=== PATIENT | female | born 1985 | race Caucasian/White ===

== ENCOUNTER 2018-08-30 08:50 | Emergency (ER) | payer MEDICAID ==
[2018-08-30 09:05] VITALS: BMI 27.3
[2018-08-30 09:13] VITALS: RESP 18
--- NOTE | 2018-08-30 09:27 | ED PDOC ---
Arrival/HPI - History of Present Illness Context: Other (gym) <Laureen Grimaldo - Last Filed: 08/30/18 10:39> - General Historian: Patient - History of Present Illness Narrative History of Present Illness (Text): 08/30/18 09:27 33 year old F with no significant PMH presents with right-sided upper back pain that started a few months ago when she injured herself at the gym. Per Patient, ever since this incident Patient reports she has been having intermittent burning and sharp pain in her left upper back/neck area. Patient says it flared up this morning after her unintentionally pulled her "hair bun back for a kiss." Patient quantifies her pain as 10/10 in severity. Patient otherwise denies headache, numbness/tingling, shortness of breath, chest pain, abdominal pain, fever, chills, nausea, vomiting, recent trauma, and/or injury. Time/Duration: 24 hours Symptom Course: Unchanged Severity Level: 10 <Paige Franklin - Last Filed: 08/30/18 10:49> - General Chief Complaint: Back Pain Time Seen by Provider: 08/30/18 08:52 Past Medical History - Provider Review Nursing Documentation Reviewed: Yes - Cardiac Hx Cardiac Disorders: No - Pulmonary Hx Respiratory Disorders: No - Neurological Hx Neurological Disorder: No - HEENT Hx HEENT Disorder: No - Renal Hx Renal Disorder: No - Endocrine/Metabolic Hx Endocrine Disorders: Yes Hx Diabetes Mellitus Type 1: Yes - Psychiatric Hx Depression: No Hx Emotional Abuse: No Hx Physical Abuse: No Hx Substance Use: No - Surgical History Hx Section: Yes - Anesthesia Hx Anesthesia: Yes Hx Anesthesia Reactions: No Hx Malignant Hyperthermia: No - Suicidal Assessment Feels Threatened In Home Enviroment: No <Paige Franklin - Last Filed: 08/30/18 10:49> Family/Social History - Physician Review Nursing Documentation Reviewed: Yes Family/Social History: No Known Family HX Smoking Status: Never Smoked Hx Alcohol Use: No Hx Substance Use: No Hx Substance Use Treatment: No <Paige Franklin - Last Filed: 08/30/18 10:49> Allergies/Home Meds <Laureen Grimadlo - Last Filed: 08/30/18 10:39> <Paige Franklin - Last Filed: 08/30/18 10:49> Allergies/Adverse Reactions: Allergies No Known Allergies Allergy (Verified 08/30/18 09:12) Home Medications: Home Meds Medication Instructions Recorded Confirmed Insulin Human Regular [Novolin R] 1 unit SUBCUT CONT 08/30/18 08/30/18 Review of Systems - Review of Systems Constitutional: absent: Fatigue, Weight Change Eyes: absent: Vision Changes, Photophobia ENT: absent: Sore Throat Respiratory: absent: SOB, Cough Cardiovascular: absent: Chest Pain, Palpitations Gastrointestinal: absent: Abdominal Pain, Diarrhea, Nausea, Vomiting Musculoskeletal: Back Pain, Neck Pain Skin: absent: Rash, Skin Lesions, Laceration Neurological: absent: Headache, Dizziness Endocrine: absent: Diaphoresis Hemo/Lymphatic: absent: Adenopathy Psychiatric: absent: Anxiety <Paige Franklin - Last Filed: 08/30/18 10:49> Physical Exam Vital Signs Temp Pulse Resp BP Pulse Ox 08/30/18 09:04 98.2 F 108 H 18 129/84 98 <Laureen Grimaldo - Last Filed: 08/30/18 10:39> Vital Signs Reviewed: Yes Vital Signs Temp Pulse Resp BP Pulse Ox 08/30/18 09:04 98.2 F 108 H 18 129/84 98 Temperature: Afebrile Blood Pressure: Normal Pulse: Tachycardic Respiratory Rate: Normal Appearance: Positive for: Well-Appearing, Uncomfortable Pain Distress: Moderate Mental Status: Positive for: Alert and Oriented X 3 - Systems Exam Head: Present: Atraumatic, Normocephalic Pupils: Present: PERRL Extroacular Muscles: Present: EOMI Conjunctiva: Present: Normal Mouth: Present: Moist Mucous Membranes Nose (Internal): Present: Normal Inspection Neck: No: Normal Range of Motion (decreased rotation and sidebending bilaterally) Respiratory/Chest: Present: Good Air Exchange. No: Respiratory Distress, Accessory Muscle Use Cardiovascular: Present: Tachycardic Abdomen: No: Tenderness, Distention Back: Present: Normal Inspection, Paraspinal Tenderness (left T1-T4, hypertrophy and bogginess ). No: CVA Tenderness, Midline Tenderness Upper Extremity: Present: Normal Inspection. No: Cyanosis, Edema Lower Extremity: Present: Normal Inspection. No: Edema, CALF TENDERNESS Neurological: Present: GCS=15, CN II-XII Intact, Speech Normal Skin: Present: Warm, Dry, Normal Color. No: Rashes <Paige Franklin - Last Filed: 08/30/18 10:49> Medical Decision Making ED Course and Treatment: 08/30/18 10:39 Patient Seen with Resident: In agreement with resident note which contains more details about the patient. Patient seen and evaluated with resident. Came up with plan and treatment together. Impression: 33 year old female who presents to the emergency department complaining of right upper back pain. - Medication Orders Current Medication Orders: Discontinued Medications Ketorolac Tromethamine (Toradol) 15 mg IM STAT STA Stop: 08/30/18 09:29 Last Admin: 08/30/18 09:35 Dose: 15 mg MAR Pain Assessment Document 08/30/18 09:35 CD (Rec: 08/30/18 09:36 CD [id number] Pain Reassessment Is this a pain reassessment? No Sleep Is patient sleeping during reassessment? No Presence of Pain Presence of Pain Yes Pain Scale Used Protocol: PSCALES Pain Scale Used Numeric Location Upper or Lower Upper Pain Location Body Site Shoulder Description Description Constant Intensity of Pain at present 6 Radiation Location from right to left shoulder and neck Duration months ago IM Administration Charges Document 08/30/18 09:35 CD (Rec: 08/30/18 09:36 CD [id number] Injection Site MAR Injection Site Left Gluteus Medius Charges for Administration # of IM Administrations 1 <AdiliachriscassyLaureen Poncho - Last Filed: 08/30/18 10:39> ED Course and Treatment: 08/30/18 09:36 33 year old F with no significant PMH presents with right-sided upper back pain that started a few months ago when she injured herself at the gym. PLAN: - Toradol 15mg IM x1 <Paige Franklin - Last Filed: 08/30/18 10:49> - Scribe Statement The provider has reviewed the documentation as recorded by the Emigdio Pantoja Provider Scribe Attestation: All medical record entries made by the Scribe were at my direction and personally dictated by me. I have reviewed the chart and agree that the record accurately reflects my personal performance of the history, physical exam, medical decision making, and the department course for this patient. I have also personally directed, reviewed, and agree with the discharge instructions and disposition. <Laureen Grimaldo - Last Filed: 08/30/18 10:39> Disposition/Present on Arrival <Laureen Grimaldo - Last Filed: 08/30/18 10:39> - Present on Arrival Any Indicators Present on Arrival: No History of DVT/PE: No History of Uncontrolled Diabetes: No Urinary Catheter: No History of Decub. Ulcer: No History Surgical Site Infection Following: None - Disposition Have Diagnosis and Disposition been Completed?: Yes Disposition Time: 10:48 Patient Plan: Discharge <Paige Franklin - Last Filed: 08/30/18 10:49> - Disposition Diagnosis: Strain of thoracic back region Disposition: HOME/ ROUTINE Condition: IMPROVED Discharge Instructions (ExitCare): Muscle Strain (DC) Additional Instructions: Follow-up with your Primary Care Physician within 3-5 days of being discharged from the emergency room Apply head pads to area of discomfort If your symptoms return, go to your nearest emergency department Referrals: Roslyn Sarmiento, RN [Primary Care Provider] - Follow up with primary Forms: [employer] (Vietnamese)
[2018-08-30 10:59] VITALS: BP 116/76; PULSE 86; TEMP 97.8; O2SAT 97
== END 2018-08-30 10:57 | disposition home or self-care (01) ==
LOC: ED 08:50
DX: S29.012A Strain of muscle and tendon of back wall of thorax, initial encounter (principal); X50.0XXA Overexertion from strenuous movement or load, initial encounter
CPT/HCPCS: 81025; 96372; 99282; J1885